=== PATIENT | male | born 1955 | race Caucasian/White ===

== ENCOUNTER 2023-12-31 13:36 | Emergency (ER) | payer OTHER, SELFPAY ==
[2023-12-31] VITALS (11 sets, daily range): BP systolic 111–140; BP diastolic 62–80; PULSE 60–91; RESP 10–19; TEMP 36.4; O2SAT 95–100; BMI 25.5; BMI 27.1
--- NOTE | ~2023-12-31 | XR_ITS ---
EXAMINATION: XR HIP, RIGHT CLINICAL INFORMATION: Post reduction COMPARISON: 4:10 PM TECHNIQUE: AP view of the right hip. FINDINGS: Right hip arthroplasty dislocation has been realigned. No fracture demonstrated. XR/XR hip RT 1V IMPRESSION: Right hip arthroplasty dislocation has been realigned. No fracture demonstrated.
--- NOTE | ~2023-12-31 | XR_ITS ---
EXAMINATION: XR PELVIS CLINICAL INFORMATION: Question dislocation COMPARISON: None available. TECHNIQUE: AP view of the pelvis. FINDINGS: Limited detail due to suboptimal positioning. The right hip prosthesis is dislocated cephalad completely. The acetabular component appears rotated suggesting suboptimal positioning although this should be correlated with baseline imaging. A dedicated right hip series may be more definitive. Left hip prosthesis appears grossly intact. No definite fracture. XR/XR pelvis 1-2V IMPRESSION: 1. Right hip dislocation as above. Recommend baseline imaging correlation for further assessment. 2. No definite fracture.
[2023-12-31 14:24] LABS: MANUAL DIFF FLAG NO
--- NOTE | 2023-12-31 14:24 | PC.NURSE ---
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 Pt reports h/o right hip popping out in past. States pain 10/10 however resting in position of comfort at this time. BLE edema noted approx +1-+2 pitting. Pt states this is baseline for him. VSS. IV placed to right FA and labs obtained/sent, awaits ED provider evaluation
[2023-12-31 14:27] LABS: Basophils Absolute Auto 0.1 X10*3/uL (0.0-0.2); Basophils Percent Auto 0.9 % (0-2); Eosinophils Absolute Auto 0.3 X10*3/uL (0.0-0.4); Eosinophils Percent Auto 3.9 % (0-4); Hematocrit 42.6 % (42.0-52.0); Hemoglobin 14.4 g/dl (14.0-18.0); Imm Gran Abs Auto 0.03 X10*3/uL (0.00-0.03); Imm Gran Pct Auto 0.5 % (0.0-0.4); Lymphocytes Absolute Auto 2.1 X10*3/uL (1.2-4.9); Lymphocytes Percent Auto 32.7 % (20-40); Mean Corpuscular HGB Conc 33.8 g/dl (31.0-36.0); Mean Corpuscular Volume 91.6 fL (80.0-98.0); Monocytes Absolute Auto 0.5 X10*3/uL (0.1-1.2); Monocytes Percent Auto 7.2 % (2-11); Neutrophils Absolute Auto 3.6 x10*3/uL (2.0-8.3); Neutrophils Percent Auto 54.8 % (45-73); Platelet Count 199 X10*3/uL (160-400); Red Blood Count 4.65 X10*6/uL (4.60-5.80); Red Cell Distribution Width 14.2 % (11.0-16.0); White Blood Count 6.5 X10*3/uL (4.8-10.8)
[2023-12-31 14:32] LABS: INTERNATIONAL NORM RATIO 1.2 (0.9-1.1); Prothrombin Time 15.1 SEC (11.1-13.3)
[2023-12-31 14:43] LABS: Alanine Aminotransferase 10 U/L (0-40); Alkaline Phosphatase 85 U/L (39-117); Anion Gap 16 (12-20); Aspartate Amino Transferase 11 U/L (5-37); Bilirubin Total 0.5 mg/dL (0.0-1.0); Blood Urea Nitrogen 15 mg/dL (9-16); Carbon Dioxide 24 mmol/L (22-29); Chloride 105 mmol/L (96-108); Creatinine Clr Calc Pharmacy 66.7; Estimated Glomerular Filt Rate > 60; Glucose Random 103 mg/dL (60-115); Potassium 4.1 mmol/L (3.3-5.1); Sodium 141 mmol/L (135-145); Total Protein 6.9 g/dL (6.5-8.0)
[2023-12-31] MEDS: fentaNYL citrate/PF 100 MCG/2 ML VIAL 25 MCG IVPUSH (15:40)
[2023-12-31] MEDS: Ketorolac Tromethamine 30 MG/ML VIAL 15 MG IVPUSH (15:40)
--- NOTE | 2023-12-31 16:40 | ED_ITS ---
HPI - Extremity Problem General Chief complaint: Extremity Problem Stated complaint: RIGHT HIP POOPED OUT Time Seen by Provider: 12/31/23 14:43 Source: patient Mode of arrival: EMS History of Present Illness ED Provider: Dr Tran HPI Narrative: Last Meal: 1000 68-year-old male with known prosthetic hip, has come out previously and states that he was sitting in try to get up and that his hip has come out again. Related Data Allergies Allergy/AdvReac Type Severity Reaction Status Date / Time No Known Allergies Allergy Verified 12/31/23 14:11 Review of Systems 2 Review of Systems: Pertinent positives and negatives as stated in HPI [facility] Past Medical History Source: nursing notes reviewed Social History Social History Alcohol intake: current Smoked in Last 30 Days: Yes Use of substances other than those prescribed or required for medical reasons: No Advance Directives: No Advance Directives Information Provided: Yes Physical Exam 2 Vital Signs: Vital Signs: Last Vital Signs Temp 97.5 F 12/31/23 18:45 Pulse 68 12/31/23 18:45 Resp 15 12/31/23 18:45 BP 134/71 12/31/23 18:45 Pulse Ox 98 12/31/23 18:45 O2 Del Method Room Air 12/31/23 18:45 Oxygen Flow Rate 100 12/31/23 18:03 BMI result Body Mass Index 27.1 VITAL SIGNS: Reviewed. GENERAL: Well developed, well nourished, in no acute distress. HEAD: Normocephalic/atraumatic EYES: PERRLA, EOMI EARS: Ext canals without abnormality NOSE: Nares patent bilateral OROPHARYNX: no oral lesions noted, posterior pharynx clear NECK: Supple, no adenopathy LUNGS: Normal breath sounds. No adventitious sounds or accessory muscle use. SpO2<95> CARDIOVASCULAR: Regular rate and rhythm without noted murmurs, no JVD or lower extremity edema. ABDOMEN: Soft, non-tender, non-distended with bowel sounds. PELVIS: Deformity over right hip, distal portion is contracted and internally rotated but neurovascular is intact. MUSCULOSKELETAL: No tenderness, deformities, or effusions noted on gross inspection. EXTREMITIES: No cyanosis, clubbing or edema. SKIN: Inspection of the skin reveals no rashes NEUROLOGIC: Alert and oriented x 4. Strength and sensation to light touch were grossly intact x 4. Medications Administered Discontinued Medications Generic Name Dose Route Start Last Admin Trade Name Lizzy PRN Reason Stop Dose Admin Fentanyl 25 mcg 12/31/23 15:32 12/31/23 15:40 Fentanyl Citrate/Pf 100 Mcg/2 Ml Vial IVPUSH 12/31/23 15:33 25 mcg ONCE ONE Administration Protocol Ketorolac Tromethamine 15 mg 12/31/23 15:32 12/31/23 15:40 Ketorolac Tromethamine 30 Mg/Ml Vial IVPUSH 12/31/23 15:33 15 mg ONCE ONE Administration Propofol 78.4 mg 12/31/23 17:29 12/31/23 17:49 Propofol 200 Mg/20 Ml Vial 1 mg/kg (78.4 mg) 12/31/23 17:30 78.4 mg IVPUSH Administration ONCE ONE Medical Decision Making Medical Decision Making [facility] Narrative: 68-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 Neurovascularly intact distally, I reviewed the x-rays. I reviewed all investigations and hematologic indices are negative for leukocytosis/anemia/thrombocytopenia. Patient coagulation studies are consistent with his use of anticoagulation. Chemistry indices negative for SANTIAGO/electrolyte or liver enzyme derangements. Right hip was reduced using Captain Buck maneuver with good reduction on clinical assessment, postreduction films demonstrate prosthesis is back in alignment. Patient is hemodynamically stable. Attempted to gain any other recommendations for postreduction on prosthetic hip from learning and development specialist, but there was no response. Patient is otherwise eating, drinking and has voided, he has safe ride home with his brother and was given postreduction precautions regarding angle of flexion at the hip. He was also strongly encouraged to return to the orthopedic surgeon who did the surgery for evaluation to determine what else can be done to prevent recurrent dislocation. Differential Diagnosis Differential Diagnoses: The differential diagnosis associated with the presentation includes Please see the discussion above Admission/Observation Consideration of admission/observation: Escalation of care including admission/observation considered Please see the discussion above Lab Data [facility] Lab Attestation statement: I reviewed the patient's lab results. Please see the discussion above 12/31/23 14:18 12/31/23 14:18 Labs: Lab Results 12/31/23 12/31/23 Range/Units 14:18 18:26 WBC 6.5 (4.8-10.8) X10*3/uL RBC 4.65 (4.60-5.80) X10*6/uL Hgb 14.4 (14.0-18.0) g/dl Hct 42.6 (42.0-52.0) % MCV 91.6 (80.0-98.0) fL MCH 31.0 (27.0-33.0) pg MCHC 33.8 (31.0-36.0) g/dl RDW 14.2 (11.0-16.0) % Plt Count 199 (160-400) X10*3/uL MPV 10.0 (9.4-12.4) fL Immature Gran % (Auto) 0.5 H (0.0-0.4) % Neut % (Auto) 54.8 (45-73) % Lymph % (Auto) 32.7 (20-40) % [place] % (Auto) 7.2 (2-11) % Eos % (Auto) 3.9 (0-4) % Baso % (Auto) 0.9 (0-2) % Lymph # (Auto) 2.1 (1.2-4.9) X10*3/uL [place] # (Auto) 0.5 (0.1-1.2) X10*3/uL Eos # (Auto) 0.3 (0.0-0.4) X10*3/uL Baso # (Auto) 0.1 (0.0-0.2) X10*3/uL Abs Immat Gran (auto) 0.03 (0.00-0.03) X10*3/uL Absolute Neuts (auto) 3.6 (2.0-8.3) x10*3/uL Absolute Nucleated RBC 0.000 (0.0-0.012) X10*3/uL Nucleated RBC % (auto) 0.0 (0.0-0.2) /100WBC PT 15.1 H (11.1-13.3) SEC INR 1.2 H (0.9-1.1) Sodium 141 (135-145) mmol/L Potassium 4.1 (3.3-5.1) mmol/L Chloride 105 (96-108) mmol/L Carbon Dioxide 24 (22-29) mmol/L Anion Gap 16 (12-20) BUN 15 (9-16) mg/dL Creatinine 0.99 (0.5-1.4) mg/dL Estim Creat Clear Calc 66.7 Estimated GFR > 60 POC Glucose 76 (60-115) mg/dL Random Glucose 103 (60-115) mg/dL Calcium 10.0 (8.4-10.2) mg/dL Total Bilirubin 0.5 (0.0-1.0) mg/dL AST 11 (5-37) U/L ALT 10 (0-40) U/L Alkaline Phosphatase 85 (39-117) U/L Total Protein 6.9 (6.5-8.0) g/dL Albumin 4.0 (3.5-5.0) g/dL Radiology Impression Discussion of test interpretation with radiology: I have reviewed the radiologist's reading. Radiologist Impression: Please see the discussion above Chronic Conditions Patient?s care impacted by: Diabetes and Hypertension Chronic anticoagulation, history CVA Procedures Orthopedic Joint Reduction Joint #1: Time Out Performed: Yes Side: right Joint Reduction Location: hip Analgesia: procedural sedation (Propofol, 78.4 mg) Technique used: traction/counter-traction and direct manipulation Post-reduction neuro exam: intact Post-reduction vascular: intact Post Reduction X-Ray Obtained: Yes Post Reduction X-Ray Results: reduced Splint Applied: No Patient Tolerated Procedure: well Critical Care Time Critical Care Time Critical Care Time: Yes Total Critical Care Time: 30 Attestation: I personally attest to this time spent taking care of the patient. Discharge Plan Discharge Clinical Impression: Dislocation of right hip Patient Disposition: Home, Self-Care Instructions: Hip Dislocation (ED) Additional Instructions: Resume all home medications. Please use significant caution when sitting or standing from a sitting position. Return for any worsening of your symptoms. Print Language: Panamanian
[2023-12-31] MEDS: propofoL 200 MG/20 ML VIAL 78.4 MG IVPUSH (17:49)
--- NOTE | 2023-12-31 18:02 | PC.RT ---
RT called to bedside for conscious sedation. Pt has right hip dislocation. Pt was given propofol for sedation, velasquez well. During procedure, pt SATs dropped to low 80's, CO2 dropped to 18 and pt had no respiratory effort. RT bag ventilated pt at a rate of 16 BPM for approx 3 minutes with 100% O2 entrained, SATs improved to 100%. Pt awoke from sedation and regained respiratory effort. Pt on RA SATs 98% with a CO2 of 32 on monitor. No other complications noted.
--- NOTE | 2023-12-31 18:22 | PC.NURSE ---
Pt underwent R hip reduction with Propofol. Pt monitored per protocol re: VS and post assessment. See sedation flowsheet for details.
[2023-12-31 18:29] LABS: Glucose, Whole Blood 76 mg/dL (60-115)
[2024-01-01 06:35] VITALS: BP 132/68; PULSE 68; RESP 16; TEMP 36.3; O2SAT 99
--- NOTE | 2024-01-01 06:36 | PC.NURSE ---
12/31/[id number] Pt brother present to picker box operator for discharge. Pt eating and drinking without difficulty, able to use urinal, ambulated to bathroom with cane to change clothing. IV removed, pt alert and oriented X 4 with some expressive aphasia from previous stroke. pt verbalized understanding of discharge instructions,
== END 2023-12-31 21:40 | disposition home or self-care (01) ==
PROVIDERS: Emergency Provider Student in an Organized Health Care Education/Training Program
DX: M24.451 Recurrent dislocation, right hip (principal); Z96.641 Presence of right artificial hip joint; Z79.01 Long term (current) use of anticoagulants
CPT/HCPCS: 27265; 36415; 72170; 73501; 80053; 82947; 85025; 85610; 96374; 96375; 99285; J1885; J2704; J3010